=== PATIENT | female | born 1975 | race Caucasian/White ===

== ENCOUNTER 2017-01-01 18:23 | Emergency (ER) | payer OTHER ==
[2017-01-01 19:20] LABS: BASOPHIL 0.7 % (0-2); EOSINOPHIL 1.9 % (0-5); HCT 43.5 % (37.0-47.0); HGB 14.9 g/dl (12.5-16.0); LYMPHOCYTE 31.3 % (15-48); MCHC 34.3 g/dL (32.0-36.0); MCV 87.7 fL (78.0-100.0); MONOCYTE 10.2 % (0-12); MPV 8.8 fL (6.0-9.5); NEUTROPHIL 55.9 % (41-80); PLT 306 K/uL (150-400); RBC 4.96 M/uL (4.20-5.40); RDW 13.4 % (11.5-14.0); WBC 7.4 K/uL (4.0-10.5)
[2017-01-01 19:41] LABS: CREATININE 0.7 mg/dL (0.5-1.0); POTASSIUM 4.4 mmol/L (3.5-5.1)
== END 2017-01-01 20:21 | disposition home or self-care (01) ==
LOC: FER 18:23
PROVIDERS: Emergency Medicine Emergency Medical Services
DX: G43.909 Migraine, unspecified, not intractable, without status migrainosus (principal); F32.9 Major depressive disorder, single episode, unspecified; F17.210 Nicotine dependence, cigarettes, uncomplicated; Z79.899 Other long term (current) drug therapy
CPT/HCPCS: 36415; 70450; 80048; 85025; J1100; J1885; J2765; J2800